=== PATIENT | male | born 1930 | race Asian ===

== ENCOUNTER 2017-10-01 17:24 | Emergency (ER) | payer OTHER ==
[~2017-10-01] VITALS: Ht 172.7 cm; Wt 86.2 kg
[2017-10-01 17:31] VITALS: Ht 172.7 cm; Wt 86.2 kg
[2017-10-01 21:06] VITALS: BP 155/73
== END 2017-10-01 21:06 | disposition home or self-care (01) ==
LOC: ED 17:24
DX: S16.1XXA Strain of muscle, fascia and tendon at neck level, initial encounter (principal); R51 Headache; V49.9XXA Car occupant (driver) (passenger) injured in unspecified traffic accident, initial encounter; W22.10XA Striking against or struck by unspecified automobile airbag, initial encounter; Y93.89 Activity, other specified; Y92.89 Other specified places as the place of occurrence of the external cause; Y99.8 Other external cause status
CPT/HCPCS: J1885

== ENCOUNTER 2020-03-18 19:54 | Emergency (ER) | payer OTHER ==
[~2020-03-18] VITALS: Ht 152.4 cm; Wt 56.7 kg
[2020-03-18 20:12] VITALS: Ht 152.4 cm; Wt 56.7 kg
[2020-03-18 21:07] LABS: BASOPHIL % 0.2 % (0-2); PLATELET COUNT 216 x10^3mcL (130-400); RED CELL DISTRIBUTION WIDTH 15.1 % (11.5-14.5)
[2020-03-18 21:29] LABS: T3 TOTAL 1.19 ng/mL
[2020-03-18 21:31] LABS: CALCIUM 9.1 mg/dL (8.5-10.1); CARBON DIOXIDE 26.5 mmol/L (21-32); CHLORIDE SERUM 97 mmol/L (98-107); CREATININE SERUM 0.9 mg/dL (0.7-1.3); GLUCOSE SERUM 136 mg/dL (74-106); POTASSIUM SERUM 3.9 mmol/L (3.5-5.1); SODIUM SERUM 133 mmol/L (136-145)
[2020-03-18 21:35] LABS: ALBUMIN 3.7 g/dL (3.4-5.0); ALKALINE PHOSPHATASE 58 U/L (46-116); ALT/SGPT 33 U/L (16-63); AST/SGOT 36 U/L (15-37); BILIRUBIN TOTAL 0.3 mg/dL (0.20-1.00); LIPASE 353 IU/L (73-393); TOTAL PROTEIN, SERUM 7.6 g/dL (6.4-8.2); TRIGLYCERIDES 31 mg/dL (<150)
[2020-03-18 21:36] LABS: CHOLESTEROL 204 mg/dL (<200); CHOLESTEROL/HDL RATIO 2.7; HDL CHOLESTEROL 76 mg/dL (40-60)
[2020-03-18 22:14] LABS: FREE T4 0.94 ng/dL (0.76-1.46); FREE THYROXINE INDEX 2.7 ug/dL (1.4-4.5)
[2020-03-18 22:56] VITALS: BP 140/60
[2020-03-18 23:16] LABS: microscopic required? YES; urine erythrocyte TRACE (NEGATIVE)
== END 2020-03-18 22:56 | disposition home or self-care (01) ==
LOC: ED 19:54
PROVIDERS: Specialist
DX: E11.649 Type 2 diabetes mellitus with hypoglycemia without coma (principal)
CPT/HCPCS: 82962; 83880; 84439; J7030

== ENCOUNTER 2020-04-07 11:46 | Emergency (ER) | payer OTHER ==
[~2020-04-07] VITALS: Ht 160 cm; Wt 63.5 kg
[2020-04-07 12:07] VITALS: Ht 160 cm; Wt 63.5 kg
[2020-04-07 13:04] LABS: BASOPHIL % 0.1 % (0-2); PLATELET COUNT 219 x10^3mcL (130-400)
[2020-04-07 13:15] LABS: RED CELL DISTRIBUTION WIDTH 14.7 % (11.5-14.5)
[2020-04-07 13:24] LABS: CARBON DIOXIDE 29.3 mmol/L (21-32); CHLORIDE SERUM 93 mmol/L (98-107); CREATININE SERUM 1.2 mg/dL (0.7-1.3); GLUCOSE SERUM 177 mg/dL (74-106); POTASSIUM SERUM 4.2 mmol/L (3.5-5.1); SODIUM SERUM 126 mmol/L (136-145)
[2020-04-07 13:29] LABS: ALBUMIN 3.5 g/dL (3.4-5.0); ALKALINE PHOSPHATASE 57 U/L (46-116); ALT/SGPT 21 U/L (16-63); AST/SGOT 19 U/L (15-37); BILIRUBIN TOTAL 0.3 mg/dL (0.20-1.00)
[2020-04-07 13:34] LABS: CHOLESTEROL 224 mg/dL (<200); HDL CHOLESTEROL 74 mg/dL (40-60)
[2020-04-07 14:17] LABS: microscopic required? YES; urine erythrocyte NEGATIVE (NEGATIVE)
[2020-04-07 17:29] VITALS: BP 124/74
== END 2020-04-07 17:30 | disposition home or self-care (01) ==
LOC: ED 11:46
PROVIDERS: Emergency Medicine
DX: E11.649 Type 2 diabetes mellitus with hypoglycemia without coma (principal); E87.1 Hypo-osmolality and hyponatremia
CPT/HCPCS: 82962; J7030; Q0092